=== PATIENT | male | born 1975 | race Caucasian/White ===

== ENCOUNTER 2018-12-10 12:53 | Emergency (ER) | payer MEDICARE ==
[2018-12-10] MEDS ORDERED: LIDOCAINE HCL-MPF 1% 2ML VIAL ONE (13:23)
[2018-12-10] MEDS ORDERED: KETOROLAC TROMETHAMINE 60 MG/2 ML VIAL ONE (13:24)
[2018-12-10] MEDS ORDERED: CEFTRIAXONE SODIUM 1 GM ONE (13:24)
== END 2018-12-10 14:18 | disposition home or self-care (01) ==
LOC: EDH 12:53
DX: K04.7 Periapical abscess without sinus (principal); K02.9 Dental caries, unspecified; L03.211 Cellulitis of face; Z88.8 Allergy status to other drugs, medicaments and biological substances; Z98.890 Other specified postprocedural states; Z72.0 Tobacco use
CPT/HCPCS: 96372 ×2; 99284; J0696; J1885; J3490; 96374; 96375